=== PATIENT | male | born 1960 | race Caucasian/White ===

== ENCOUNTER 2017-05-18 11:18 | Emergency (ER) | payer OTHER ==
[~2017-05-18] VITALS: Ht 175.3 cm; Wt 64.5 kg
[2017-05-18] MEDS ORDERED: LEVE500T53 PO (11:30)
[2017-05-18 11:38] VITALS: BP 106/62
[2017-05-18] MEDS ORDERED: LevETIRAcetam 500 MG TABLET PO ONE (12:15)
== END 2017-05-18 12:14 | disposition home or self-care (01) ==
LOC: EMS 11:19
DX: Z76.0 Encounter for issue of repeat prescription (principal); G40.909 Epilepsy, unspecified, not intractable, without status epilepticus; Z59.0 Homelessness
CPT/HCPCS: 99283